=== PATIENT | male | born 1930 | race Two or more races ===

== ENCOUNTER 2017-02-06 12:06 | Inpatient (IN) | payer MEDICARE, OTHER ==
[~2017-02-06] VITALS: Ht 162.6 cm; Wt 68.1 kg
[~2017-02-06 12:06] MED LIST: ASPI325T17 PO; CEFD300C37 PO; DOXY100T PO; FINA5TAB4 PO; HCTZ PO; METF10002 PO; PREGABALIN PO; TAMS-11 PO; THAL50CA PO; TRIA0.1218 PO
[2017-02-06] MEDS ORDERED: SODIUM CHLORIDE 0.9% 1,000ML IVBOLUS ONE ×2 (12:30→13:00)
[2017-02-06 12:56] LABS: HEMATOCRIT 41.9 % (39.2-51.8); HEMOGLOBIN 13.8 g/dL (13.7-18.0); WHITE BLOOD COUNT 3.6 x10^3/uL (3.4-10)
[2017-02-06 12:58] LABS: ASPARTATE AMINO TRANSFERASE 29 U/L (15-37); BLOOD UREA NITROGEN 23 mg/dL (7-18)
[2017-02-06] MEDS ORDERED: ONDANSETRON 2MG/ML, 2ML IVPush ONE (13:00)
[2017-02-06] MEDS ORDERED: CEFTRIAXONE PMX 1GM/50ML 50 ML IVPB ONE (13:00)
[2017-02-06] MEDS ORDERED: SODIUM CHLORIDE FLUSH 10ML SYR IVF ONE (13:00)
[2017-02-06 13:03] LABS: IS PT STATUS REG ER OR PRE ER? YES
[2017-02-06] MEDS ORDERED: ONDANSETRON 2MG/ML, 2ML ONE (13:25)
[2017-02-06] MEDS ORDERED: CEFTRIAXONE PMX 1GM/50ML 50 ML ONE (13:25)
[2017-02-06] MEDS ORDERED: HYDR25TA6 PO (13:46)
[2017-02-06] MEDS ORDERED: PREG100C PO (13:46)
[2017-02-06 16:00] VITALS: BP 168/81
[2017-02-06] MEDS ORDERED: BISACODYL 10 MG SUPP PR PRN (18:00)
[2017-02-06] MEDS ORDERED: POLYETHYLENE GLYCOL 17 GM PACKET PO PRN (18:00)
[2017-02-06] MEDS ORDERED: ACETAMINOPHEN 325 MG TABLET PO PRN (18:00)
[2017-02-06 18:48] VITALS: BP 162/74
[2017-02-06] MEDS: AZITHROMYCIN 500 MG in SODIUM CHLORIDE 0.9% 250 ML IV SCH (20:06)
[2017-02-06] MEDS: SODIUM CHLORIDE 0.9% 1,000 ML IV SCH (20:07)
[2017-02-06] MEDS: ENOXAPARIN 40 MG/0.4 ML SQ SCH (20:07)
[2017-02-06] MEDS: methylPREDNISolone SOD SUCC 40 MG/ML IVPush SCH (20:07)
[2017-02-06] MEDS ORDERED: TRIAZOLAM 0.125 MG TABLET PO SCH (21:00)
[2017-02-06] MEDS: FAMOTIDINE 20 MG TABLET PO SCH (22:40)
[2017-02-06] MEDS: TAMSULOSIN 0.4 MG CAP.ER.24H PO SCH (22:40)
[2017-02-06] MEDS: FINASTERIDE 5 MG TABLET PO SCH (22:41)
[2017-02-07 01:30] VITALS: BP 154/76
[2017-02-07] MEDS: methylPREDNISolone SOD SUCC 40 MG/ML IVPush SCH ×3 (02:26→19:45)
[2017-02-07 05:24] LABS: BLOOD UREA NITROGEN 18 mg/dL (7-18)
[2017-02-07 05:52] LABS: HEMATOCRIT 37.2 % (39.2-51.8); HEMOGLOBIN 12.3 g/dL (13.7-18.0)
[2017-02-07 05:54] LABS: DIFF TOTAL CELLS COUNTED 100 CELL DIFF
[2017-02-07 05:58] LABS: WHITE BLOOD COUNT 0.9 x10^3/uL (3.4-10)
[2017-02-07 06:10] LABS: VERIFY COUNTS? YES
[2017-02-07 06:32] VITALS: BP 146/65
[2017-02-07] MEDS ORDERED: TRIAZOLAM 0.125 MG TABLET PO PRN (08:00)
[2017-02-07] MEDS: ASPIRIN 325 MG TABLET PO SCH (08:15)
[2017-02-07] MEDS: FAMOTIDINE 20 MG TABLET PO SCH ×2 (08:15→19:46)
[2017-02-07] MEDS: SODIUM CHLORIDE 0.9% 1,000 ML IV SCH ×2 (09:13→22:00)
[2017-02-07] MEDS: CEFTRIAXONE PMX 1GM/50ML 50 ML IV SCH (12:07)
[2017-02-07 12:49] VITALS: BP 153/62
[2017-02-07] MEDS ORDERED: TBO-FILGRASTIM 480 MCG/0.8 ML SQ ONE (13:00)
[2017-02-07 15:35] LABS: PATH.CAST-FLAG NOT PRESENT; SPERM-FLAG NOT PRESENT; SRC-FLAG NOT PRESENT; XTAL-FLAG NOT PRESENT; YLC-FLAG NOT PRESENT
[2017-02-07] MEDS: ENOXAPARIN 40 MG/0.4 ML SQ SCH (16:33)
[2017-02-07 19:19] VITALS: BP 164/62
[2017-02-07] MEDS: FINASTERIDE 5 MG TABLET PO SCH (19:45)
[2017-02-07] MEDS: TAMSULOSIN 0.4 MG CAP.ER.24H PO SCH (19:45)
[2017-02-07] MEDS: AZITHROMYCIN 500 MG in SODIUM CHLORIDE 0.9% 250 ML IV SCH (19:45)
[2017-02-07] MEDS ORDERED: IPRA4AER INH (22:45)
[2017-02-07] MEDS ORDERED: FLUT1DIS5 IH (22:45)
[2017-02-07] MEDS ORDERED: TELM1TAB2 PO (23:04)
[2017-02-08 01:00] VITALS: BP 155/72
[2017-02-08] MEDS ORDERED: ALBUTEROL SULFATE 2.5 MG/3 ML ONE (03:37)
[2017-02-08] MEDS ORDERED: ALBUTEROL/IPRATROPIUM 2.5MG/0.5MG, 3 ML ONE (04:00)
[2017-02-08] MEDS ORDERED: ALBUTEROL SULFATE 2.5 MG/3 ML NPPB PRN (04:30)
[2017-02-08 05:11] LABS: BLOOD UREA NITROGEN 22 mg/dL (7-18)
[2017-02-08 05:34] LABS: HEMATOCRIT 39.2 % (39.2-51.8); HEMOGLOBIN 12.8 g/dL (13.7-18.0); WHITE BLOOD COUNT 21.2 x10^3/uL (3.4-10)
[2017-02-08 05:36] LABS: DIFF TOTAL CELLS COUNTED 100 CELL DIFF
[2017-02-08 05:38] LABS: VERIFY COUNTS? YES
[2017-02-08] MEDS ORDERED: POTASSIUM CHLORIDE 20 MEQ TAB.ER.PRT PO ONE (07:00)
[2017-02-08 07:33] VITALS: BP 120/54
[2017-02-08] MEDS: ASPIRIN 325 MG TABLET PO SCH (08:51)
[2017-02-08] MEDS: FAMOTIDINE 20 MG TABLET PO SCH ×2 (08:51→19:45)
[2017-02-08] MEDS: SODIUM CHLORIDE 0.9% 1,000 ML IV SCH ×2 (12:13→19:46)
[2017-02-08] MEDS: methylPREDNISolone SOD SUCC 40 MG/ML IVPush SCH (12:13)
[2017-02-08] MEDS: CEFTRIAXONE PMX 1GM/50ML 50 ML IV SCH (12:13)
[2017-02-08 14:00] VITALS: BP 149/64
[2017-02-08] MEDS ORDERED: DEXTROSE 4 GM TAB.CHEW PO PRN (15:30)
[2017-02-08] MEDS ORDERED: DEXTROSE 50%, 50ML SYRINGE IVPush PRN (15:30)
[2017-02-08] MEDS ORDERED: GLUCAGON 1 MG IM PRN (15:30)
[2017-02-08] MEDS: metFORMIN 500 MG TABLET PO SCH (16:34)
[2017-02-08] MEDS: INSULIN ASPART 100 UNITS/ML, PEN SQ-INSULIN SCH (17:00)
[2017-02-08 19:04] VITALS: BP 179/79
[2017-02-08] MEDS: ENOXAPARIN 40 MG/0.4 ML SQ SCH (19:44)
[2017-02-08] MEDS: AZITHROMYCIN 500 MG in SODIUM CHLORIDE 0.9% 250 ML IV SCH (19:44)
[2017-02-08] MEDS: PREGABALIN 75 MG CAPSULE PO SCH (19:45)
[2017-02-08] MEDS: FINASTERIDE 5 MG TABLET PO SCH (19:45)
[2017-02-08] MEDS: TAMSULOSIN 0.4 MG CAP.ER.24H PO SCH (19:45)
[2017-02-08] MEDS: SODIUM CHLORIDE FLUSH 10ML SYR IVF SCH (21:51)
[2017-02-08 21:53] VITALS: BP 159/78
[2017-02-09 01:23] VITALS: BP 149/75
[2017-02-09 04:39] LABS: HEMOGLOBIN 12.3 g/dL (13.7-18.0); WHITE BLOOD COUNT 27.2 x10^3/uL (3.4-10)
[2017-02-09 05:48] LABS: DIFF TOTAL CELLS COUNTED 100 CELL DIFF
[2017-02-09 05:50] LABS: VERIFY COUNTS? YES
[2017-02-09 06:33] LABS: ASPARTATE AMINO TRANSFERASE 22 U/L (15-37); BLOOD UREA NITROGEN 21 mg/dL (7-18)
[2017-02-09 07:21] VITALS: BP 151/64
[2017-02-09] MEDS: INSULIN ASPART 100 UNITS/ML, PEN SQ-INSULIN SCH ×2 (08:00→17:00)
[2017-02-09] MEDS: PREGABALIN 75 MG CAPSULE PO SCH ×2 (08:24→21:24)
[2017-02-09] MEDS: metFORMIN 500 MG TABLET PO SCH ×2 (08:24→16:58)
[2017-02-09] MEDS: ASPIRIN 325 MG TABLET PO SCH (08:24)
[2017-02-09] MEDS: FAMOTIDINE 20 MG TABLET PO SCH ×2 (08:24→21:24)
[2017-02-09] MEDS: SODIUM CHLORIDE FLUSH 10ML SYR IVF SCH ×2 (08:26→21:24)
[2017-02-09] MEDS: FLUTICASONE/VILANTEROL 100-25MCG/INH INH SCH (09:49)
[2017-02-09] MEDS: SODIUM CHLORIDE 0.9% 1,000 ML IV SCH (12:26)
[2017-02-09] MEDS: CEFTRIAXONE PMX 1GM/50ML 50 ML IV SCH (12:26)
[2017-02-09 13:47] VITALS: BP 154/65
[2017-02-09] MEDS: AMPICILLIN/SULBACTAM 3 GM in SODIUM CHLORIDE 0.9% 100 ML IV SCH ×2 (16:50→23:26)
[2017-02-09 18:24] VITALS: BP 169/72
[2017-02-09] MEDS: ENOXAPARIN 40 MG/0.4 ML SQ SCH (18:37)
[2017-02-09] MEDS: AZITHROMYCIN 500 MG in SODIUM CHLORIDE 0.9% 250 ML IV SCH (21:24)
[2017-02-09] MEDS: TAMSULOSIN 0.4 MG CAP.ER.24H PO SCH (21:24)
[2017-02-09] MEDS: FINASTERIDE 5 MG TABLET PO SCH (21:24)
[2017-02-10 03:17] VITALS: BP 170/65
[2017-02-10 03:48] VITALS: BP 140/62
[2017-02-10 04:39] LABS: HEMATOCRIT 34.9 % (39.2-51.8); HEMOGLOBIN 11.4 g/dL (13.7-18.0); WHITE BLOOD COUNT 14.8 x10^3/uL (3.4-10)
[2017-02-10] MEDS: AMPICILLIN/SULBACTAM 3 GM in SODIUM CHLORIDE 0.9% 100 ML IV SCH ×4 (04:42→22:24)
[2017-02-10 04:44] LABS: BLOOD UREA NITROGEN 18 mg/dL (7-18)
[2017-02-10 06:42] VITALS: BP 161/78
[2017-02-10] MEDS: INSULIN ASPART 100 UNITS/ML, PEN SQ-INSULIN SCH ×2 (08:00→16:59)
[2017-02-10] MEDS: SODIUM CHLORIDE FLUSH 10ML SYR IVF SCH ×2 (08:21→20:23)
[2017-02-10] MEDS: metFORMIN 500 MG TABLET PO SCH ×2 (08:21→16:53)
[2017-02-10] MEDS: FAMOTIDINE 20 MG TABLET PO SCH ×2 (08:21→20:23)
[2017-02-10] MEDS: ASPIRIN 325 MG TABLET PO SCH (08:21)
[2017-02-10] MEDS: FLUTICASONE/VILANTEROL 100-25MCG/INH INH SCH (08:21)
[2017-02-10] MEDS: PREGABALIN 75 MG CAPSULE PO SCH ×2 (08:21→20:23)
[2017-02-10 12:39] VITALS: BP 170/66
[2017-02-10] MEDS: CEFTRIAXONE PMX 1GM/50ML 50 ML IV SCH (12:51)
[2017-02-10] MEDS ORDERED: POTASSIUM CHLORIDE 20 MEQ TAB.ER.PRT PO ONE (13:30)
[2017-02-10] MEDS: ENOXAPARIN 40 MG/0.4 ML SQ SCH (18:15)
[2017-02-10 19:40] VITALS: BP 173/79
[2017-02-10 19:52] VITALS: BP 160/74
[2017-02-10] MEDS: AZITHROMYCIN 500 MG in SODIUM CHLORIDE 0.9% 250 ML IV SCH (20:23)
[2017-02-10] MEDS: TAMSULOSIN 0.4 MG CAP.ER.24H PO SCH (20:23)
[2017-02-10] MEDS: FINASTERIDE 5 MG TABLET PO SCH (20:23)
[2017-02-11 00:13] VITALS: BP 162/77
[2017-02-11] MEDS: AMPICILLIN/SULBACTAM 3 GM in SODIUM CHLORIDE 0.9% 100 ML IV SCH ×3 (04:39→17:46)
[2017-02-11 04:46] LABS: HEMATOCRIT 37.8 % (39.2-51.8); HEMOGLOBIN 12.2 g/dL (13.7-18.0); WHITE BLOOD COUNT 9.8 x10^3/uL (3.4-10)
[2017-02-11 06:38] VITALS: BP 163/66
[2017-02-11] MEDS: INSULIN ASPART 100 UNITS/ML, PEN SQ-INSULIN SCH ×2 (08:00→17:00)
[2017-02-11] MEDS: metFORMIN 500 MG TABLET PO SCH ×2 (08:21→17:46)
[2017-02-11] MEDS: FAMOTIDINE 20 MG TABLET PO SCH (08:22)
[2017-02-11] MEDS: FLUTICASONE/VILANTEROL 100-25MCG/INH INH SCH (08:22)
[2017-02-11] MEDS: PREGABALIN 75 MG CAPSULE PO SCH (08:22)
[2017-02-11] MEDS: ASPIRIN 325 MG TABLET PO SCH (08:23)
[2017-02-11] MEDS: SODIUM CHLORIDE FLUSH 10ML SYR IVF SCH (09:00)
[2017-02-11 12:49] VITALS: BP 168/69
[2017-02-11] MEDS: CEFTRIAXONE PMX 1GM/50ML 50 ML IV SCH (13:39)
[2017-02-11] MEDS ORDERED: CEFD300C37 PO (14:59)
[2017-02-11] MEDS ORDERED: AMOX1TAB64 PO (14:59)
[2017-02-11] MEDS: AZITHROMYCIN 500 MG in SODIUM CHLORIDE 0.9% 250 ML IV SCH (15:50)
[2017-02-11] MEDS: ENOXAPARIN 40 MG/0.4 ML SQ SCH (17:51)
[2017-02-11] MEDS ORDERED: POLYETHYLENE GLYCOL 17 GM PACKET PO PRN (20:30)
[2017-02-11] MEDS ORDERED: GLUCAGON 1 MG IM PRN (20:30)
[2017-02-11] MEDS ORDERED: DEXTROSE 4 GM TAB.CHEW PO PRN (20:30)
[2017-02-11] MEDS ORDERED: ACETAMINOPHEN 325 MG TABLET PO PRN (20:30)
[2017-02-11] MEDS ORDERED: BISACODYL 10 MG SUPP PR PRN (20:30)
[2017-02-11] MEDS ORDERED: DEXTROSE 50%, 50ML SYRINGE IVPush PRN (20:30)
[2017-02-11] MEDS ORDERED: SODIUM CHLORIDE FLUSH 10ML SYR IVF SCH (21:00)
== END 2017-02-11 20:20 | disposition home or self-care (01) | DRG 871 ==
LOC: ED 14:15 → EDIP 14:16 → ED 14:57 → 3NW 15:59
PROVIDERS: ADMIT Internal Medicine
DX: A41.9 Sepsis, unspecified organism (principal); J96.01 Acute respiratory failure with hypoxia; J69.0 Pneumonitis due to inhalation of food and vomit; E43 Unspecified severe protein-calorie malnutrition; G93.49 Other encephalopathy; D70.9 Neutropenia, unspecified; C88.0 Waldenstrom macroglobulinemia; J18.1 Lobar pneumonia, unspecified organism; D64.9 Anemia, unspecified; E11.9 Type 2 diabetes mellitus without complications; I10 Essential (primary) hypertension; Z88.6 Allergy status to analgesic agent; Z68.25 Body mass index [BMI] 25.0-25.9, adult; N40.0 Benign prostatic hyperplasia without lower urinary tract symptoms; Z87.891 Personal history of nicotine dependence
CPT/HCPCS: 36415; 70450; 71010; 71020; 80048; 80053; 81001; 82140; 82607; 82746; 82962; 83605; 83735; 84100; 84145; 84484; 85025; 87040; 93005; 94640; 96365; 96375; J0295; J0456; J0696; J1650; J1815; J2405; J1447; J2920; J7030; J7050

== ENCOUNTER → 2017-03-13 | Outpatient (CLI) | payer MEDICARE, OTHER ==
[~2017-03-13] MED LIST changes: +AMOX1TAB64 PO; +FLUT1DIS5 IH; +HYDR25TA6 PO; +IPRA4AER INH; +PREG100C PO; +TELM1TAB2 PO
== END | disposition home or self-care (01) ==
LOC: CFH 06:50
PROVIDERS: ATTEND Internal Medicine
DX: N28.1 Cyst of kidney, acquired (principal); R63.4 Abnormal weight loss
CPT/HCPCS: 76700

== ENCOUNTER 2017-07-02 08:25 | Inpatient (IN) | payer MEDICARE, OTHER ==
[~2017-07-02] VITALS: Ht 162.6 cm; Wt 73.9 kg
[2017-07-02] MEDS ORDERED: SODIUM CHLORIDE FLUSH 10ML SYR IVF ONE (09:30)
[2017-07-02] MEDS ORDERED: methylPREDNISolone SOD SUCC 125 MG/2 ML IVP ONE (09:30)
[2017-07-02] MEDS ORDERED: ALBUTEROL/IPRATROPIUM 2.5MG/0.5MG, 3 ML NPPB ONE (09:30)
[2017-07-02] MEDS ORDERED: ALBUTEROL/IPRATROPIUM 2.5MG/0.5MG, 3 ML ONE (09:31)
[2017-07-02] MEDS ORDERED: methylPREDNISolone SOD SUCC 125 MG/2 ML ONE (09:35)
[2017-07-02 09:55] LABS: RAPID INFLUENZA A Negative (Negative); RAPID INFLUENZA B Negative (Negative)
[2017-07-02 09:57] LABS: BASOPHILS # (AUTO) 0.03 x10^3/uL (0-0.1); BASOPHILS % (AUTO) 0 % (0-1); EOSINOPHILS # (AUTO) 0.19 x10^3/uL (0-0.4); EOSINOPHILS % (AUTO) 2 % (1-7); LYMPHOCYTES # (AUTO) 0.93 x10^3/uL (1-3.4); LYMPHOCYTES % (AUTO) 9 % (22-44); MD NO; MEAN CORPUSCULAR HEMOGLOBIN 30.6 pg (27.5-34.5); MEAN CORPUSCULAR HGB CONC 33.6 g/dL (33.2-36.2); MEAN CORPUSCULAR VOLUME 91.1 fL (81-97); MEAN PLATELET VOLUME 9.3 fL (7.4-10.4); MONOCYTES # (AUTO) 1.19 x10^3/uL (0.2-0.8); MONOCYTES % (AUTO) 12 % (2-9); NEUTROPHILS # (AUTO) 7.52 x10^3/uL (1.8-6.8); NEUTROPHILS % (AUTO) 76 % (42-75); PLATELET COUNT 317 x10^3/uL (130-400); RED BLOOD COUNT 4.29 x10^6/uL (4.38-5.82); RED CELL DISTRIBUTION WIDTH 14.4 % (9.4-14.8)
[2017-07-02] MEDS ORDERED: THAL50CA PO (10:03)
[2017-07-02] MEDS ORDERED: CEFTRIAXONE PMX 1GM/50ML 50 ML ONE (10:05)
[2017-07-02 10:07] LABS: PROTHROMBIN TIME 10.4 Seconds (9.6-11.5)
[2017-07-02 10:10] LABS: ALANINE AMINOTRANSFERASE 17 U/L (12-78); ALBUMIN 3.1 g/dL (3.4-5.0); ANION GAP 9 mmol/L (5-15); CALCIUM 8.8 mg/dL (8.5-10.1); CHLORIDE 98 mmol/L (98-107)
[2017-07-02 10:15] LABS: ALKALINE PHOSPHATASE 85 U/L (45-117); BILIRUBIN,TOTAL 0.7 mg/dL (0.2-1.0); CREATININE 1.29 mg/dL (0.7-1.3); TOTAL PROTEIN 7.8 g/dL (6.4-8.2)
[2017-07-02] MEDS ORDERED: AZITHROMYCIN 500 MG in SODIUM CHLORIDE 0.9% 250 ML IVPB ONE (10:30)
[2017-07-02] MEDS ORDERED: CEFTRIAXONE PMX 1GM/50ML 50 ML IVPB ONE (10:30)
[2017-07-02] MEDS ORDERED: ACETAMINOPHEN 325 MG TABLET PO PRN (13:30)
[2017-07-02] MEDS ORDERED: POLYETHYLENE GLYCOL 17 GM PACKET PO PRN (13:30)
[2017-07-02] MEDS ORDERED: HYDROcodone/APAP 5/325 TABLET PO PRN (13:30)
[2017-07-02] MEDS ORDERED: ONDANSETRON 2MG/ML, 2ML IVPush PRN (13:30)
[2017-07-02] MEDS: POTASSIUM CHLORIDE 20 MEQ TAB.ER.PRT PO SCH ×2 (14:18→16:34)
[2017-07-02] MEDS: ENOXAPARIN 40 MG/0.4 ML SQ SCH (14:18)
[2017-07-02] MEDS: SODIUM CHLORIDE 0.9% 1,000 ML IV SCH (14:19)
[2017-07-02 14:22] LABS: HEMOGLOBIN A1C 6.4 % (4.2-6.3)
[2017-07-02 14:27] VITALS: BP 155/77
[2017-07-02] MEDS: INSULIN ASPART 100 UNITS/ML, PEN SQ-INSULIN SCH ×2 (18:13→21:09)
[2017-07-02 19:37] VITALS: BP 130/71
[2017-07-02] MEDS: ALBUTEROL SULFATE 2.5 MG/3 ML NPPB SCH (19:44)
[2017-07-02] MEDS: TAMSULOSIN 0.4 MG CAP.ER.24H PO SCH (21:09)
[2017-07-03] MEDS: SODIUM CHLORIDE 0.9% 1,000 ML IV SCH ×3 (00:09→19:20)
[2017-07-03] MEDS: TEMAZEPAM 15 MG CAPSULE PO PRN ×2 (00:12→23:12)
[2017-07-03 02:55] VITALS: BP 128/63
[2017-07-03 06:00] LABS: MEAN CORPUSCULAR HEMOGLOBIN 30.8 pg (27.5-34.5); MEAN CORPUSCULAR HGB CONC 33.5 g/dL (33.2-36.2); MEAN CORPUSCULAR VOLUME 91.8 fL (81-97); MEAN PLATELET VOLUME 9.6 fL (7.4-10.4); PLATELET COUNT 318 x10^3/uL (130-400); RED BLOOD COUNT 3.47 x10^6/uL (4.38-5.82)
[2017-07-03 06:12] LABS: CHLORIDE 108 mmol/L (98-107)
[2017-07-03 06:18] LABS: BASOPHILS # (AUTO) 0.02 x10^3/uL (0-0.1); BASOPHILS % (AUTO) 0 % (0-1); EOSINOPHILS % (AUTO) 0 % (1-7); LYMPHOCYTES # (AUTO) 0.72 x10^3/uL (1-3.4); LYMPHOCYTES % (AUTO) 8 % (22-44); MD SCAN; MONOCYTES # (AUTO) 0.86 x10^3/uL (0.2-0.8); MONOCYTES % (AUTO) 9 % (2-9); NEUTROPHILS % (AUTO) 82 % (42-75)
[2017-07-03 06:24] LABS: ANION GAP 9 mmol/L (5-15); CALCIUM 8.4 mg/dL (8.5-10.1); CREATININE 1.16 mg/dL (0.7-1.3)
[2017-07-03 06:25] LABS: HEMOGLOBIN A1C 6.2 % (4.2-6.3)
[2017-07-03] MEDS: INSULIN ASPART 100 UNITS/ML, PEN SQ-INSULIN SCH ×4 (07:22→20:47)
[2017-07-03] MEDS: ALBUTEROL SULFATE 2.5 MG/3 ML NPPB SCH (07:32)
[2017-07-03 07:48] VITALS: BP 123/75
[2017-07-03] MEDS ORDERED: POTASSIUM PHOSPHATE 44 MEQ in SODIUM CHLORIDE 0.9% 500 ML IV ONE (09:00)
[2017-07-03] MEDS: ASPIRIN 325 MG TABLET PO SCH (09:34)
[2017-07-03] MEDS: CEFTRIAXONE 1,000 MG in SODIUM CHLORIDE 0.9% 50 ML IV SCH (09:46)
[2017-07-03] MEDS: AZITHROMYCIN 500 MG in SODIUM CHLORIDE 0.9% 250 ML IV SCH (10:38)
[2017-07-03 13:01] VITALS: BP 126/73
[2017-07-03] MEDS ORDERED: ZOLPIDEM 5MG TABLET PO PRN (15:00)
[2017-07-03] MEDS: ENOXAPARIN 40 MG/0.4 ML SQ SCH (16:11)
[2017-07-03 20:27] VITALS: BP 146/54
[2017-07-03] MEDS: TAMSULOSIN 0.4 MG CAP.ER.24H PO SCH (20:48)
[2017-07-04 01:41] VITALS: BP 140/60
[2017-07-04] MEDS ORDERED: ALBUTEROL SULFATE 2.5 MG/3 ML ONE (04:13)
[2017-07-04 04:40] LABS: ALBUMIN 2.4 g/dL (3.4-5.0); ANION GAP 8 mmol/L (5-15); CALCIUM 8.4 mg/dL (8.5-10.1); CHLORIDE 111 mmol/L (98-107)
[2017-07-04 04:45] LABS: CREATININE 1.05 mg/dL (0.7-1.3)
[2017-07-04 04:46] LABS: ALANINE AMINOTRANSFERASE 20 U/L (12-78); ALKALINE PHOSPHATASE 67 U/L (45-117); BILIRUBIN,TOTAL 0.4 mg/dL (0.2-1.0); TOTAL PROTEIN 5.9 g/dL (6.4-8.2)
[2017-07-04] MEDS: SODIUM CHLORIDE 0.9% 1,000 ML IV SCH ×2 (05:20→20:59)
[2017-07-04] MEDS: INSULIN ASPART 100 UNITS/ML, PEN SQ-INSULIN SCH ×4 (07:00→20:59)
[2017-07-04 07:20] VITALS: BP 149/80
[2017-07-04] MEDS: ASPIRIN 325 MG TABLET PO SCH (08:14)
[2017-07-04] MEDS: CEFTRIAXONE 1,000 MG in SODIUM CHLORIDE 0.9% 50 ML IV SCH (10:22)
[2017-07-04] MEDS ORDERED: ALBUTEROL SULFATE 2.5 MG/3 ML NPPB PRN (11:00)
[2017-07-04] MEDS: AZITHROMYCIN 500 MG in SODIUM CHLORIDE 0.9% 250 ML IV SCH (11:11)
[2017-07-04 12:43] VITALS: BP 151/73
[2017-07-04] MEDS: ENOXAPARIN 40 MG/0.4 ML SQ SCH (16:37)
[2017-07-04 19:08] VITALS: BP 175/75
[2017-07-04 20:57] VITALS: BP 171/69
[2017-07-04] MEDS: TAMSULOSIN 0.4 MG CAP.ER.24H PO SCH (20:58)
[2017-07-04] MEDS: hydrALAzine 20 MG/ML, 1ML IVPush PRN (21:05)
[2017-07-04 21:40] VITALS: BP 152/80
[2017-07-05 01:37] VITALS: BP 147/66
[2017-07-05] MEDS: SODIUM CHLORIDE 0.9% 1,000 ML IV SCH (06:09)
[2017-07-05] MEDS: INSULIN ASPART 100 UNITS/ML, PEN SQ-INSULIN SCH ×4 (07:23→20:04)
[2017-07-05] MEDS: ASPIRIN 325 MG TABLET PO SCH (07:24)
[2017-07-05 07:34] VITALS: BP 146/52
[2017-07-05] MEDS: CEFTRIAXONE 1,000 MG in SODIUM CHLORIDE 0.9% 50 ML IV SCH (10:02)
[2017-07-05] MEDS: AZITHROMYCIN 500 MG in SODIUM CHLORIDE 0.9% 250 ML IV SCH (10:40)
[2017-07-05 14:00] VITALS: BP 129/71
[2017-07-05] MEDS: ENOXAPARIN 40 MG/0.4 ML SQ SCH (16:04)
[2017-07-05] MEDS: TEMAZEPAM 15 MG CAPSULE PO PRN ×2 (20:03→22:56)
[2017-07-05] MEDS: TAMSULOSIN 0.4 MG CAP.ER.24H PO SCH (20:03)
[2017-07-05 20:08] VITALS: BP 171/80
[2017-07-05 20:16] VITALS: BP 180/82
[2017-07-05] MEDS: hydrALAzine 20 MG/ML, 1ML IVPush PRN (20:18)
[2017-07-05 21:23] VITALS: BP 131/67
[2017-07-06 00:40] VITALS: BP 139/64
[2017-07-06] MEDS: INSULIN ASPART 100 UNITS/ML, PEN SQ-INSULIN SCH ×2 (07:00→11:00)
[2017-07-06] MEDS: ASPIRIN 325 MG TABLET PO SCH (08:28)
[2017-07-06 08:30] VITALS: BP 145/81
[2017-07-06] MEDS: CEFTRIAXONE 1,000 MG in SODIUM CHLORIDE 0.9% 50 ML IV SCH (09:13)
[2017-07-06] MEDS: AZITHROMYCIN 500 MG in SODIUM CHLORIDE 0.9% 250 ML IV SCH ×2 (09:46→11:16)
[2017-07-06] MEDS ORDERED: CEFD300C37 PO (11:11)
[2017-07-06] MEDS ORDERED: AZIT500T PO (11:11)
== END 2017-07-06 13:45 | disposition home or self-care (01) | DRG 193 ==
LOC: ED 09:53 → EDIP 11:00 → 3NW 12:15
PROVIDERS: ADMIT Hospitalist; ATTEND Internal Medicine
DX: J18.9 Pneumonia, unspecified organism (principal); G93.40 Encephalopathy, unspecified; J96.01 Acute respiratory failure with hypoxia; E43 Unspecified severe protein-calorie malnutrition; Z88.6 Allergy status to analgesic agent; E11.9 Type 2 diabetes mellitus without complications; Z68.28 Body mass index [BMI] 28.0-28.9, adult; E83.39 Other disorders of phosphorus metabolism; E87.6 Hypokalemia; I10 Essential (primary) hypertension; Z85.72 Personal history of non-Hodgkin lymphomas; Z86.011 Personal history of benign neoplasm of the brain
CPT/HCPCS: 36415; 71045; 80048; 80053; 82962; 83036; 83605; 83735; 83880; 84100; 84145; 84443; 85025; 85610; 85730; 87040; 87070; 87205; 87400; 93005; 94640; 96365; 96366; 96368; 96375; J0456; J0696; J1650; J1815; J7613; J7620; J0360; J2930; J7030; J7040; J7050

== ENCOUNTER → 2017-10-30 | Outpatient (CLI) | payer MEDICARE, OTHER ==
[~2017-10-30] MED LIST changes: +AZIT500T PO
== END | disposition home or self-care (01) ==
LOC: RAD 13:14
PROVIDERS: ATTEND Internal Medicine
DX: R51 Headache (principal)
CPT/HCPCS: 70450